=== PATIENT | female | born 1965 | race Caucasian/White ===

== ENCOUNTER 2020-04-21 01:17 | Emergency (ER) | payer OTHER ==
[~2020-04-21] VITALS: Ht 177.8 cm; Wt 73.9 kg
[2020-04-21 01:18] VITALS: BP 137/64
--- NOTE | 2020-04-21 01:43 | NUR ---
CC OF WORSENING UTI SYMTPOMS. PT PRESCRIBED CIPRO BY PCP, NO IMPROVEMENT. UA SENT TO LAB
[2020-04-21 01:45] LABS: MICROSCOPIC NOT IND
[2020-04-21 02:02] LABS: BASOPHILS % (AUTO) 0 % (0-1); EOSINOPHILS % (AUTO) 1 % (1-7); LYMPHOCYTES % (AUTO) 17 % (22-44); MD NO; MEAN CORPUSCULAR HEMOGLOBIN 30.2 pg (27.0-34.8); MEAN CORPUSCULAR HGB CONC 33.4 g/dL (32.4-35.8); MONOCYTES % (AUTO) 5 % (2-9); NEUTROPHILS % (AUTO) 77 % (42-75); PLATELET COUNT 216 x10^3/uL (130-400); RED BLOOD COUNT 4.54 x10^6/uL (3.82-5.3); RED CELL DISTRIBUTION WIDTH 13.6 % (9.6-15.2)
[2020-04-21 02:13] LABS: ALANINE AMINOTRANSFERASE 35 U/L (12-78); ALBUMIN 3.7 g/dL (3.4-5.0); ANION GAP 5 mmol/L (5-15); CALCIUM 8.8 mg/dL (8.5-10.1); CHLORIDE 109 mmol/L (98-107); CREATININE 0.83 mg/dL (0.55-1.02)
[2020-04-21 02:15] LABS: ALKALINE PHOSPHATASE 90 U/L (45-117); BILIRUBIN,TOTAL 0.2 mg/dL (0.2-1.0); TOTAL PROTEIN 7.5 g/dL (6.4-8.2)
[2020-04-21] MEDS ORDERED: CEFDINIR 300 MG CAPSULE ONE (02:49)
[2020-04-21] MEDS ORDERED: IBUPROFEN 600 MG TABLET ONE (02:50)
[2020-04-21] MEDS ORDERED: CEFDINIR 300 MG CAPSULE PO ONE (03:00)
[2020-04-21] MEDS ORDERED: IBUPROFEN 200 MG TABLET PO ONE (03:00)
== END 2020-04-21 03:02 | disposition home or self-care (01) ==
LOC: ED 02:30
DX: R30.0 Dysuria (principal); R50.9 Fever, unspecified
CPT/HCPCS: 36415; 80053; 81003; 85025; 99283